=== PATIENT | female | born 1980 | race Hispanic/Latino ===

== ENCOUNTER 2018-09-20 17:40 | Inpatient (IN) | payer MEDICAID ==
[2018-09-20] MEDS ORDERED: LACTATED RINGERS 1,000 ML ONE (19:08)
--- NOTE | 2018-09-20 19:51 | History and Physical Report ---
History of Present Illness Date of examination: 09/20/18 Chief complaint: I'm having contractions History of present illness: Patient is a 37 year who presents with contractions at 39.6 weeks. Her course has been complicated by frequent utis. She is Rh negative and GBS negative. Past History Past Medical History: no pertinent history Past Surgical History: no surgical history Social history: - Obstetrical History Expected Date of Delivery: 09/21/18 Actual Gestation: 39 Week(s) 6 Day(s) : 3 Para: 1 Number of Living Children: 1 Medications and Allergies Allergies Allergy/AdvReac Type Severity Reaction Status Date / Time No Known Allergies Allergy Verified 07/02/18 13:21 Home Medications Medication Instructions Recorded Confirmed Last Taken Type Vits96/Iron Fum/Folic 1 tab PO DAILY 09/11/15 09/11/15 1 Day Ago History [ Tablet] ~09/10/15 1 tab Ibuprofen [Motrin 800 MG tab] 800 mg PO Q8HR PRN #30 tablet 09/13/15 Unknown Rx oxyCODONE /ACETAMINOPHEN [Percocet 2 tab PO Q6HR PRN #30 tablet 09/13/15 Unknown Rx 5/325] Review of Systems All systems: negative Cardiovascular: chest pain Breasts: deferred Genitourinary: pelvic pain - Vital Signs Vital signs: Vital Signs Pulse Pulse Ox 79 98 09/20/18 17:52 09/20/18 17:52 Temp Pulse Resp BP Pulse Ox 98.6 F 80 20 121/64 97 09/20/18 17:56 09/20/18 19:03 09/20/18 17:56 09/20/18 17:56 09/20/18 19:03 - Physical Exam Breasts: Cardiovascular: Regular rate, Normal S1, Normal S2 Lungs: Positive: Clear to auscultation, Normal air movement Abdomen: Positive: normal appearance, soft, normal bowel sounds. Negative: distention, tenderness Genitourinary (Female): Positive: normal external genitalia, normal perenium Vulva: both: normal Vagina: Positive: normal moisture. Negative: discharge Cervix: Negative: lesion, discharge Uterus: Positive: normal size, normal contour Adnexa: both: normal Anus/Rectum: Positive: normal perianal skin, heme negative. Negative: rectal mass, hemorrhoids Extremities: Deep Tendon Reflex Grade: Normal +2 - Obstetrical Cervical Dilatation: 5 Cervical Effacement Percentage: 90 station: +1 Uterine Contraction Pattern: Regular Uterine Tone Measurement Phase: Contraction Uterine Contraction Intensity: Moderate Results All other labs normal. Assessment and Plan IUP at 39.5 weeks here in active labor. Admit to L&D. AROM when able. Anticipate .
[2018-09-20] MEDS ORDERED: ZOFRAN IV PRN (19:55)
[2018-09-20] MEDS ORDERED: STADOL IV PRN (19:55)
[2018-09-20] MEDS ORDERED: MINERAL OIL PO PRN (19:55)
[2018-09-20] MEDS ORDERED: BRETHINE IVP PRN (19:55)
[2018-09-20] MEDS ORDERED: BRETHINE SUB-Q PRN (19:55)
[2018-09-20] MEDS ORDERED: PITOCin/NS 30 UNIT/500ML 30 UNITS/500 ML BAG IV SCH (20:00)
[2018-09-20] MEDS ORDERED: LACTATED RINGERS 1,000 ML IV SCH (20:00)
[2018-09-20 20:38] LABS: Hematocrit 32.8 % (30.3-42.9); Hemoglobin 11.1 gm/dl (10.1-14.3); Mean Corpuscular HGB Conc 34 % (30-34); Mean Corpuscular Volume 85 fl (79-97); Platelet Count 360 K/mm3 (140-440); Red Blood Count 3.88 M/mm3 (3.65-5.03); Red Cell Distribution Width 14.9 % (13.2-15.2)
[2018-09-20] MEDS ORDERED: XYLOCAINE 2% INFILTRATI ONE (21:00)
[2018-09-20] MEDS ORDERED: SUBLIMAZE IV ONE (21:56)
[2018-09-20] MEDS: PITOCin/NS 20 UNIT/1000ML DRIP 20 UNITS/1,000 ML BAG IV SCH ×2 (22:39→23:47)
--- NOTE | 2018-09-20 22:50 | Procedure Note ---
OB Delivery Note - Delivery Date of Delivery: 09/20/18 Surgeon: OSWALD DICKERSON Estimated blood loss: 100cc - Vaginal Delivery presentation: vertex Delivery position: OA Intrapartum events: none Delivery induction: none Delivery monitor: external FHT, external uterine Route of delivery: Delivery placenta: spontaneous Delivery cord: 3 umbilical vessels Episiotomy: none Delivery laceration: none Anesthesia: none Delivery comments: Viable female delivered over intact perineum with 3vc and without epidural. NICU called by nursing staff for patient being given fentanyl . Infant had sponanteous and vigorous cry as she was placed on maternal abdomen. Apgars 9.9. Weight 6 pounds 1 ounce. Placenta delivered spontaneously and intact with 3vc. No lacerations. Patient tolerated procedure well. Excellent hemostasis. - Infant A at 1 minute: 8 at 5 minutes: 9 Infant Gender: Female (Weight 6 pounds 1 ounce, 2492 grams)
[2018-09-21] MEDS ORDERED: ZOFRAN IV PRN (00:33)
[2018-09-21] MEDS ORDERED: TYLENOL PO PRN (00:33)
[2018-09-21] MEDS ORDERED: DULCOLAX PR PRN (00:33)
[2018-09-21] MEDS ORDERED: BENADRYL PO PRN (00:33)
[2018-09-21] MEDS ORDERED: PHENERGAN PR PRN (00:33)
[2018-09-21] MEDS ORDERED: LANSINOH TP PRN (00:33)
[2018-09-21] MEDS ORDERED: MILK OF MAGNESIA PO PRN (00:33)
[2018-09-21] MEDS ORDERED: TUCKS PAD TP PRN (00:33)
[2018-09-21] MEDS ORDERED: SODIUM CHLORIDE FLUSH SYRINGE 10 ML IV PRN (00:33)
[2018-09-21] MEDS ORDERED: PHENERGAN PO PRN (00:33)
[2018-09-21] MEDS: IBUPROFEN PO SCH ×2 (01:29→13:40)
[2018-09-21 11:35] LABS: Hematocrit 30.1 % (30.3-42.9); Hemoglobin 10.1 gm/dl (10.1-14.3)
[2018-09-21] MEDS: NORCO 5/325 PO PRN (13:40)
[2018-09-21] MEDS: PRENATAL VITAMIN PO SCH (13:40)
[2018-09-21] MEDS: COLACE PO SCH (13:40)
[2018-09-22] MEDS: NORCO 5/325 PO PRN (01:51)
[2018-09-22] MEDS: IBUPROFEN PO SCH ×2 (01:51→14:45)
[2018-09-22] MEDS: COLACE PO SCH ×2 (01:52→14:51)
[2018-09-22] MEDS ORDERED: BOOSTRIX IM ONE (08:00)
--- NOTE | 2018-09-22 12:05 | Progress Note ---
Assessment and Plan PPD 2 s/p . Doing well. Plan for discharge on today Subjective - Subjective Date of service: 09/22/18 Interval history: Patient is a 37 year who presents with contractions at 39.6 weeks. Her course has been complicated by frequent utis. She is Rh negative and GBS negative. Patient reports: appetite normal, voiding normally, pain well controlled, ambulating normally [place]: doing well Objective - Vital Signs Latest vital signs: Vital Signs Temp Pulse Resp BP Pulse Ox 09/22/18 07:46 98.4 F 73 18 113/67 99 09/21/18 16:33 98.8 F 70 18 103/59 98 Intake and Output 09/21/18 09/22/18 09/22/18 22:59 06:59 14:59 Intake Total 480 200 120 Balance 480 200 120 Intake: Oral 480 200 120 Other: Total, Intake Amount 480 200 120 - Exam Breasts: Present: deferred Cardiovascular: Present: Regular rate, Normal S1, Normal S2 Lungs: Present: Clear to auscultation, Normal air movement Abdomen: Present: normal appearance, soft Uterus: Present: normal, firm, fundal height below umbilicus Extremities: Present: normal
--- NOTE | 2018-09-22 12:06 | Discharge Summary ---
Providers - Providers Date of Admission: 09/20/18 19:49 Date of discharge: 09/22/18 Attending physician: OSWALD DICKERSON Primary care physician: OSWALD DICKERSON Hospitalization Reason for admission: active labor Delivery: Episiotomy: none Laceration: none complications: none Discharge diagnosis: IUP at term delivered baby: female Hospital course: unremarkable Condition at discharge: Good Disposition: DC-01 TO HOME OR SELFCARE Plan - Discharge Medications Prescriptions: Ibuprofen [Motrin] 800 mg PO Q8HR PRN #40 tablet PRN Reason: Pain, Mild (1-3) HYDROcodone/APAP 5-325 [[place] 5/325] 1 each PO Q6HR PRN #15 tablet PRN Reason: Pain - Provider Discharge Summary Activity: routine, no sex for 6 weeks, no heavy lifting 4 weeks Diet: routine Instructions: routine Additional instructions: [] Smoking cessation referral if applicable(refer to patient education folder for contact #) [] Refer to [facility] Booklet Call your doctor immediately for: * Fever > 100.5 * Heavy vaginal bleeding ( >1 pad per hour) * Severe persistent headache * Shortness of breath * Reddened, hot, painful area to leg or breast * Drainage or odor from incision. * Keep incision clean and dry at all times and follow doctor's instructions regarding bathing/showering - Follow up plan Follow up: OSWALD DICKERSON MD [Primary Care Provider] - 14 Days
[2018-09-22] MEDS: PRENATAL VITAMIN PO SCH (14:45)
[2018-09-22 17:56] VITALS: BP 123/59
== END 2018-09-22 16:19 | disposition home or self-care (01) | DRG 775 ==
LOC: TRG 17:40 → LD 19:49 → OB 09-21 00:49
PROVIDERS: ADMIT Obstetrics & Gynecology; ATTEND Obstetrics & Gynecology
PROC: 10E0XZZ Delivery of Products of Conception, External Approach (ICD-10-PCS; principal; 2018-09-20)
PROC: 3E0234Z Introduction of Serum, Toxoid and Vaccine into Muscle, Percutaneous Approach (ICD-10-PCS; 2018-09-22)
DX: O80 Encounter for full-term uncomplicated delivery (principal); Z3A.39 39 weeks gestation of pregnancy; Z37.0 Single live birth; Z23 Encounter for immunization
CPT/HCPCS: 36415; 85014; 85018; 85027; 86592; 86850; 86900; 86901; 90471; 90715; G0378; J2590; J3010; J7120

== ENCOUNTER 2018-10-13 06:53 | Day surgery (SDC) | payer MEDICAID ==
[2018-10-13] MEDS ORDERED: VERSED IV NR (08:00)
[2018-10-13] MEDS ORDERED: NEURONTIN PO NR (08:00)
[2018-10-13] MEDS ORDERED: ANCEF/STERILE WATER 2 GM/20 ML 2 GM/20 ML SYRINGE IV NR (08:00)
[2018-10-13] MEDS ORDERED: LACTATED RINGERS 1,000 ML IV SCH (08:00)
[2018-10-13] MEDS ORDERED: ZEMURON IV ONE (08:09)
[2018-10-13] MEDS ORDERED: DIPRIVAN 10 MG/ML IV ONE (08:10)
[2018-10-13] MEDS ORDERED: SUBLIMAZE ONE ×2 (08:10)
[2018-10-13] MEDS ORDERED: DILAUDID IV PRN (08:45)
--- NOTE | 2018-10-13 08:47 | Anesthesia Consultation ---
Anesthesia Consult and Med Hx Date of service: 10/13/18 - Airway Anesthetic Teeth Evaluation: Good ROM Head & Neck: Adequate Mental/Hyoid Distance: Adequate Mallampati Class: Class II Intubation Access Assessment: Probably Good - Pulmonary Exam CTA: Yes - Cardiac Exam Cardiac Exam: RRR - Pre-Operative Health Status ASA Pre-Surgery Classification: ASA2 Proposed Anesthetic Plan: General - Pulmonary Hx Smoking: Yes Hx Asthma: No COPD: No - Cardiovascular System Hx Hypertension: Yes (with only) Hx Heart Attack/AMI: No - Central Nervous System Hx Seizures: No CVA: No - Gastrointestinal Hx Gastroesophageal Reflux Disease: No - Endocrine Hx Renal Disease: No Hx Liver Disease: No Hx Insulin Dependent Diabetes: No Hx Non-Insulin Dependent Diabetes: No Hx Thyroid Disease: No - Other Systems Hx Obesity: No - Additional Comments Anesthesia Medical History Comments: No hx anesthetic complications.
--- NOTE | 2018-10-13 08:47 | Anesthesia Day of Surgery ---
Anesthesia Day of Surgery - Day of Surgery Patient Examined: Yes Patient H&P Reviewed: Yes Patient is NPO: Yes
--- NOTE | 2018-10-13 08:53 | Short Stay Summary ---
Short Stay Documentation Date of service: 10/13/18 Narrative H&P: Pt is a 38 year old who presents approximately 4 weeks post for elective sterilization. - History H&P: obtained from office Past Medical History: other (chronic uits) Past Surgical History: No surgical history Social history: single, lives with family - Allergies and Medications Current Medications: Allergies No Known Allergies Allergy (Verified 07/02/18 13:21) Home Medications Medication Instructions Recorded Confirmed Last Taken Type No Known Home Medications [No 10/12/18 10/12/18 Unknown History Reported Home Medications] Active Medications Celecoxib (Celebrex) 200 mg PO PREOP NR Stop: 10/13/18 19:00 Last Admin: 10/13/18 08:25 Dose: 200 mg Documented by: Gabapentin (Neurontin) 300 mg PO PREOP NR Stop: 10/13/18 19:00 Last Admin: 10/13/18 08:25 Dose: 300 mg Documented by: Hydromorphone HCl (Dilaudid) 0.5 mg IV Q10MIN PRN PRN Reason: Pain , Severe (7-10) Cefazolin Sodium (Ancef/Sterile Water 2 Gm/20 Ml) 2 gm in 20 mls @ 80 mls/hr IV PREOP NR; Protocol Stop: 10/13/18 15:00 Lactated Ringer's (Lactated Ringers) 1,000 mls @ 100 mls/hr IV DIRECT TATIANA Last Admin: 10/13/18 08:30 Dose: 100 mls/hr Documented by: Midazolam HCl (Versed) 2 mg IV ONCE NR Stop: 10/13/18 19:00 Last Admin: 10/13/18 08:33 Dose: 2 mg Documented by: - Physical exam General appearance: no acute distress HEENT: Atraumatic Lungs: Clear to auscultation, Normal air movement Breasts: deferred Heart: Regular rate, Normal S1, Normal S2 Gastrointestinal: normal, normoactive bowel sounds Female Genitourinary: deferred Rectal Exam: deferred Extremities: No edema - Brief post op/procedure progress note Date of procedure: 10/13/18 Pre-op diagnosis: Undesired fertility Post-op diagnosis: same Procedure: Bilateral Laparoscopic Salpingectomy Anesthesia: GETA Findings: Normal uterus tubes and ovaries Surgeon: OSWALD DICKERSON Estimated blood loss: 50-100ml Pathology: list (right and left fallopian tubes) Specimen disposition: to lab Condition: stable - Hospital course Hospital course: unremarkable - Disposition Condition at discharge: Good Disposition: DC-01 TO HOME OR SELFCARE Short Stay Discharge Plan Activity: advance as tolerated Weight Bearing Status: Weight Bear as Tolerated Diet: regular Follow up with: OSWALD DICKERSON MD [Staff Physician] - 14 Days Prescriptions: Ibuprofen 800 mg PO Q6H #40 tablet HYDROcodone/ACETAMINOPHEN [[place] 5-325 Tablet] 2 each PO Q6H #20 tablet
[2018-10-13] MEDS ORDERED: PROAIR IH ONE (08:55)
[2018-10-13 09:03] LABS: Hematocrit 36.8 % (30.3-42.9); Hemoglobin 12.4 gm/dl (10.1-14.3)
[2018-10-13] MEDS ORDERED: MARCAINE 0.25% INFILTRATI ONE (09:25)
[2018-10-13] MEDS ORDERED: NACL 0.9% IR ONE (09:26)
--- NOTE | 2018-10-13 10:04 | Operative Report ---
Operative Report Operative Report: Preoperative diagnosis: Undesired fertility Postoperative diagnosis: Same Procedure: Bilateral laparoscopic salpingectomy Surgeon: Avani Trujillo Anesthesia: General EBL: Minimal IV fluids: 1000 mL Urine output: 150 mL Findings: Normal uterus tubes and ovaries Specimens: Portion of right and left fallopian tube Complications: None The patient was properly identified as herself. She was then taken to the OR with IV running and in place. She was given general anesthesia without difficul ty. She was placed in a dorsal lithotomy position. She was then prepped and draped in normal sterile fashion. Attention was turned to the patient's vagina. Her bladder was drained of clear urine with a red rubber catheter. The speculum was then placed the patient's vagina. The cervix was visualized and grasped with tenaculum. The acorn cannula was then inserted. The surgeon's gloves were changed and attention turned to the patient's abdomen. A small incision was made in the patient's umbilicus incision a 5 mm trocar was placed. The laparoscope confirmed intra-abdominal placement. The abdomen was insufflated with CO2 gas to approximately 25 mmHg. Both fallopian tubes were identified. With direct visualization a second trocar was placed through an incision in the left lower quadrant. Both tubes were found and followed out to the fimbriated ends. Each tube was cauterized at the portion nearest the cornua, then cauterized across the broad ligament until the tube was completely detached. There was excellent hemostasis at the end of this portion of the procedure. Each tube was handed off for pathology. At this point the abdomen was deflated. All instruments were then removed from the abdomen. The incisions were then closed with 4-0 Monocryl. The incisions were also injected with quarter percent Marcaine. The patient tolerated the procedure well she was then awakened and taken recovery in stable condition. Sponge needle and instrument counts were correct 2.
[2018-10-13] MEDS ORDERED: NORCO 5/325 PO PRN (11:00)
--- NOTE | 2018-10-13 11:10 | Post Anesthesia Evaluation ---
- Post Anesthesia Evaluation Patient Participated: Yes Airway Patent: Yes Stable Respiratory Function: Yes Nausea/Vomiting: No Temp > 96.8F: Yes Pain Manageable: Yes Adequeate Hydration: Yes Anesthesia Complications: No
[2018-10-13 11:50] VITALS: BP 110/68
== END 2018-10-13 11:40 | disposition home or self-care (01) ==
LOC: OR 06:53
PROVIDERS: ATTEND Obstetrics & Gynecology
DX: Z30.2 Encounter for sterilization (principal); I10 Essential (primary) hypertension; F17.210 Nicotine dependence, cigarettes, uncomplicated; Z87.442 Personal history of urinary calculi; Z98.890 Other specified postprocedural states; Z83.3 Family history of diabetes mellitus; Z79.899 Other long term (current) drug therapy; Z82.49 Family history of ischemic heart disease and other diseases of the circulatory system
CPT/HCPCS: 36415; 58670; 81025; 85014; 85018; 88302; J0690; J1170; J2250; J2704; J3010; J7120